=== PATIENT | female | born 1970 | race Native Hawaiian/Other Pacific Islander ===

== ENCOUNTER 2021-09-12 11:33 | Outpatient (CLI) | payer BC | END 2021-09-12 20:06 | disposition home or self-care (01) | LOC: MAMMO 11:33 | PROVIDERS: ATTEND Registered Nurse | DX: Z12.31 Encounter for screening mammogram for malignant neoplasm of breast (principal) ==

== ENCOUNTER 2021-10-10 14:54 | Outpatient (CLI) | payer BC | END 2021-10-10 18:58 | disposition home or self-care (01) | LOC: US 14:54 | PROVIDERS: ATTEND Registered Nurse | DX: R92.1 Mammographic calcification found on diagnostic imaging of breast (principal) ==

== ENCOUNTER 2023-02-10 10:19 | Outpatient (CLI) | payer BC | END 2023-02-10 19:13 | disposition home or self-care (01) | LOC: RAD 10:19 | PROVIDERS: ATTEND Nurse Practitioner Family | DX: M25.512 Pain in left shoulder (principal) ==

== ENCOUNTER 2023-02-27 08:21 | Outpatient (CLI) | payer BC | END 2023-02-27 19:12 | disposition home or self-care (01) | LOC: MAMMO 08:21 | PROVIDERS: ATTEND Registered Nurse | DX: Z12.31 Encounter for screening mammogram for malignant neoplasm of breast (principal) ==